=== PATIENT | male | born 1940 | race Caucasian/White ===

== ENCOUNTER 2016-11-20 17:04 | Inpatient (IN) | payer OTHER ==
[~2016-11-20] VITALS: Ht 172.7 cm; Wt 99.6 kg
[~2016-11-20 17:04] MED LIST: AMOXICILLIN500 MG PO; CLARITIN10 MG PO; FLEXERIL10 MG PO; INDOCIN50 MG PO; PERCOCET 325 MG1 TA7 PO; VICODIN 5/500 505 MG PO
[2016-11-20 17:22] VITALS: BP 137/77
[2016-11-20 17:54] LABS: BASO # 0.1 10*3/uL (0.0-0.1); BASO % 1.1 % (0.0-1.0); EOS # 0.1 10*3/uL (0.0-0.4); EOS % 1.1 % (1.0-4.0); HEMOGLOBIN 14.6 g/dl (14.0-18.0); LYMPH # 2.7 10*3/uL (1.3-4.4); LYMPH % 41.8 % (27.0-41.0); MEAN CELL VOLUME 93.7 fl (80.0-94.0); MEAN CORPUSCULAR HGB 31.8 pg (27.0-31.0); MEAN PLATELET VOLUME 12.2 fl (9.6-12.3); MONO # 0.5 10*3/uL (0.1-1.0); MONO % 7.1 % (3.0-9.0); NEUT # 3.1 10*3/uL (2.3-7.9); NEUT % 48.6 % (47.0-73.0); PLATELET COUNT AUTOMATED 200 10*3/uL (130-400); RED BLOOD COUNT 4.59 10*6/uL (4.50-5.90); RED CELL DISTRI WIDTH 13.7 % (0-14.5); WHITE BLOOD COUNT 6.4 10*3/uL (4.8-10.8)
[2016-11-20 18:00] VITALS: BP 134/84
[2016-11-20 18:06] LABS: PROTHROMBIN TIME 10.5 SECONDS (9.0-12.4)
[2016-11-20 18:11] LABS: ALBUMIN 3.5 gm/dl (3.1-4.5); ALKALINE PHOSPHATASE 75 U/L (45-117); BILIRUBIN, TOTAL 0.4 mg/dl (0.2-1.0); BUN 22 mg/dl (7-24); CARBON DIOXIDE 30 mmol/L (21-32); CHLORIDE 106 mmol/L (98-107); EST GLOM FILT AFRICAN AMERICAN 52 ml/min; GLUCOSE 160 mg/dL (65-99); MAGNESIUM 2.1 mg/dL (1.5-2.1); POTASSIUM 4.1 mmol/L (3.5-5.1); SGOT/AST 29 IU/L (3-35); SGPT/ALT 51 U/L (12-78); SODIUM 143 mmol/L (136-145); TOTAL PROTEIN 6.9 gm/dL (6.4-8.2)
[2016-11-20 18:12] LABS: TROPONIN I < 0.015 ng/ml (<0.045)
[2016-11-20 21:30] VITALS: BP 118/51
[2016-11-21] VITALS: BP 138/62
[2016-11-21] MEDS ORDERED: OXYCODONE AND A1 TA4 PO (00:31)
[2016-11-21] MEDS ORDERED: COLCHICINE0.6 M1 PO (00:39)
[2016-11-21] MEDS ORDERED: ALLOPURINOL100 MG PO (00:40)
[2016-11-21] MEDS ORDERED: VITAMIN D1000 IU PO (00:40)
[2016-11-21 06:42] LABS: BASO # 0.1 10*3/uL (0.0-0.1); BASO % 1.2 % (0.0-1.0); EOS # 0.2 10*3/uL (0.0-0.4); EOS % 2.7 % (1.0-4.0); HEMATOCRIT 40.6 % (42.0-52.0); HEMOGLOBIN 13.6 g/dl (14.0-18.0); LYMPH % 51.2 % (27.0-41.0); MEAN CELL VOLUME 95.3 fl (80.0-94.0); MEAN CORPUSCULAR HGB 31.9 pg (27.0-31.0); MEAN CORPUSCULAR HGB CONC 33.5 g/dl (33.0-37.0); MONO # 0.5 10*3/uL (0.1-1.0); MONO % 7.8 % (3.0-9.0); NEUT # 2.2 10*3/uL (2.3-7.9); NEUT % 36.9 % (47.0-73.0); PLATELET COUNT AUTOMATED 166 10*3/uL (130-400); RED BLOOD COUNT 4.26 10*6/uL (4.50-5.90); RED CELL DISTRI WIDTH 13.9 % (0-14.5); WHITE BLOOD COUNT 5.9 10*3/uL (4.8-10.8)
[2016-11-21 07:16] LABS: ALBUMIN 2.9 gm/dl (3.1-4.5); BUN 21 mg/dl (7-24); CARBON DIOXIDE 26 mmol/L (21-32); CHLORIDE 110 mmol/L (98-107); CHOLESTEROL 150 mg/dL (<200); EST GLOM FILT AFRICAN AMERICAN > 60 ml/min; GLUCOSE 119 mg/dL (65-99); PHOSPHOROUS 3.5 mg/dL (2.5-4.9); SGOT/AST 23 IU/L (3-35); SGPT/ALT 41 U/L (12-78); SODIUM 143 mmol/L (136-145); TRIGLYCERIDES 146 mg/dl (<150); VLDL CHOLESTEROL 29 mg/dL (6-40)
[2016-11-21 07:21] LABS: PROTHROMBIN TIME 10.7 SECONDS (9.0-12.4)
[2016-11-21 07:22] LABS: HEMOGLOBIN A1c 6.9 % (4.8-5.6)
[2016-11-21 07:24] LABS: ALKALINE PHOSPHATASE 65 U/L (45-117); BILIRUBIN, TOTAL 0.3 mg/dl (0.2-1.0); FREE T4 0.87 ng/dl (0.76-1.46); HDL CHOLESTEROL 37 mg/dl (40-60); LDL CHOLESTEROL 84 mg/dL (9-159); TOTAL PROTEIN 5.9 gm/dL (6.4-8.2)
[2016-11-21 07:36] LABS: FOLIC ACID 9.07 ng/mL (>5.38); VITAMIN D, 25-HYDROXY 34.4 ng/mL (30-100)
[2016-11-21 08:00] VITALS: BP 144/68
[2016-11-21 10:07] LABS: BILIRUBIN NEGATIVE (NEGATIVE); BLOOD NEGATIVE (NEGATIVE); CLARITY CLEAR (CLEAR); COLOR YELLOW (YELLOW); GLUCOSE NEGATIVE (NEGATIVE); KETONE NEGATIVE (NEGATIVE); LEUKO ESTERASE NEGATIVE (NEGATIVE); NITRITE NEGATIVE (NEGATIVE); PROTEIN NEGATIVE (NEGATIVE); SPECIFIC GRAVITY 1.025 (1.005-1.030)
[2016-11-21 12:00] VITALS: BP 154/66
[2016-11-21 12:01] LABS: MUCOUS 1+; RBC 0-2 rbc/hpf (0-2); URINE REFLEX COMMENT NO (NO)
[2016-11-21 16:00] VITALS: BP 153/98
== END 2016-11-21 16:29 | disposition home or self-care (01) | DRG 205 ==
LOC: ED 17:04 → EDHOLD 18:36 → 4E 18:36
PROVIDERS: Hospitalist; Student in an Organized Health Care Education/Training Program
DX: M94.0 Chondrocostal junction syndrome [Tietze] (principal); N17.0 Acute kidney failure with tubular necrosis; E44.0 Moderate protein-calorie malnutrition; E11.9 Type 2 diabetes mellitus without complications; R07.81 Pleurodynia; M1A.9XX0 Chronic gout, unspecified, without tophus (tophi); E66.9 Obesity, unspecified; Z68.33 Body mass index [BMI] 33.0-33.9, adult; Z82.49 Family history of ischemic heart disease and other diseases of the circulatory system; Z83.3 Family history of diabetes mellitus; Z88.6 Allergy status to analgesic agent; Z79.1 Long term (current) use of non-steroidal anti-inflammatories (NSAID); Z79.899 Other long term (current) drug therapy

== ENCOUNTER 2019-02-18 15:38 | Inpatient (IN) | payer OTHER ==
[~2019-02-18] VITALS: Ht 172.7 cm; Wt 101.3 kg
[~2019-02-18 15:38] MED LIST changes: +ALLOPURINOL100 MG PO; +COLCHICINE0.6 M1 PO; +OXYCODONE AND A1 TA4 PO; +VITAMIN D1000 IU PO
[2019-02-18 15:47] VITALS: BP 163/91
[2019-02-18 16:05] LABS: BASO # 0.1 10*3/uL (0.0-0.1); BASO % 0.8 % (0.0-1.0); EOS # 0.2 10*3/uL (0.0-0.4); EOS % 1.8 % (1.0-4.0); HEMATOCRIT 45.2 % (42.0-52.0); HEMOGLOBIN 14.9 g/dl (14.0-18.0); LYMPH # 3.2 10*3/uL (1.3-4.4); LYMPH % 38.7 % (27.0-41.0); MEAN CELL VOLUME 95.8 fl (80.0-94.0); MEAN CORPUSCULAR HGB 31.6 pg (27.0-31.0); MEAN PLATELET VOLUME 11.9 fl (9.6-12.3); MONO # 0.6 10*3/uL (0.1-1.0); NEUT # 4.3 10*3/uL (2.3-7.9); NEUT % 51.5 % (47.0-73.0); PLATELET COUNT AUTOMATED 220 10*3/uL (130-400); RED BLOOD COUNT 4.72 10*6/uL (4.50-5.90); RED CELL DISTRI WIDTH 14.3 % (0-14.5); WHITE BLOOD COUNT 8.3 10*3/uL (4.8-10.8)
[2019-02-18 16:16] LABS: ACT PARTIAL THROMBO TIME 26.2 SECONDS (20.0-32.1)
[2019-02-18 16:24] LABS: ALBUMIN 3.6 gm/dl (3.1-4.5); ALKALINE PHOSPHATASE 92 U/L (45-117); BUN 20 mg/dl (7-24); CHLORIDE 107 mmol/L (98-107); CREATININE 1.24 mg/dL (0.70-1.30); POTASSIUM 4.2 mmol/L (3.5-5.1); SGOT/AST 21 IU/L (3-35); SGPT/ALT 40 U/L (12-78); SODIUM 139 mmol/L (136-145); TOTAL PROTEIN 7.8 gm/dL (6.4-8.2)
[2019-02-18 16:26] LABS: TROPONIN I < 0.015 ng/ml (<0.045)
--- NOTE | 2019-02-18 17:32 | NUR ---
PT REFUSED NITROGLYCERIN.
[2019-02-18 18:16] VITALS: BP 125/75
--- NOTE | 2019-02-18 18:58 | NUR ---
A 78, admitted to , under the services of PHIL Méndez DO with a diagnosis of DYSPNEA/CHEST PAIN. Chief complaint is INTERMITTENT EPISODES OF CHEST PAIN WITH SHORTNESS OF BREATH, ABOUT 3-4 EPISODES/DAY FOR PAST 1-2 WEEKS, DIZZINESS WITH AMBULATION. Patient arrived via stretcher from ER. Monitor applied. Initial assessment completed. Vital signs taken and recorded. PHIL MÉNDEZ DO notified of admission to the unit. Orders received. See assessment for past medical history, medications and allergies. Patient and/or family oriented to unit. [facility]. Clothing/patient valuable form completed. JANAY CABELLO
[2019-02-18] MEDS ORDERED: ALLOPURINOL300 MG PO (19:00)
[2019-02-18] MEDS ORDERED: OMEPRAZOLE20 M2 PO (19:01)
[2019-02-18] MEDS ORDERED: FISH OIL-OMEGA1 EACH PO (19:01)
[2019-02-18] MEDS ORDERED: GABAPENTIN400 MG PO (19:02)
[2019-02-18] MEDS ORDERED: DULCOLAX STOOL100 M1 PO (19:02)
[2019-02-18] MEDS ORDERED: ASPIRIN CHEWABL81 MG PO (19:03)
[2019-02-18] MEDS ORDERED: GLUCOTROL5 MG PO (19:03)
[2019-02-18] MEDS ORDERED: LIPITOR20 MG PO (19:03)
--- NOTE | 2019-02-18 19:04 | NUR ---
MED REC UPDATED/CORRECTED USING INFORMATION PROVIDED BY THE PATIENT'S DAUGHTER.
[2019-02-18 20:00] VITALS: BP 145/81
--- NOTE | 2019-02-18 21:17 | NUR ---
UNALBLE TO REACH ANSWERING SERVICE FOR CONSULT AT THIS TIME
[2019-02-19] VITALS: BP 148/75
--- NOTE | 2019-02-19 02:23 | NUR ---
ANSWERING SERVICE NOTIFIED OF CONSULT
--- NOTE | 2019-02-19 03:33 | NUR ---
PT RESTING ON BACK, RESP EASY AND REGULAR ON ROOM AIR, NO C/O NOTED. BED IN LOWEST, LOCKED POS, CALL LIGHT IN REACH.
[2019-02-19 07:14] LABS: BASO # 0.1 10*3/uL (0.0-0.1); BASO % 0.8 % (0.0-1.0); EOS # 0.2 10*3/uL (0.0-0.4); EOS % 2.3 % (1.0-4.0); HEMATOCRIT 44.3 % (42.0-52.0); HEMOGLOBIN 14.5 g/dl (14.0-18.0); LYMPH % 34.1 % (27.0-41.0); MEAN CELL VOLUME 96.3 fl (80.0-94.0); MEAN CORPUSCULAR HGB 31.5 pg (27.0-31.0); MEAN CORPUSCULAR HGB CONC 32.7 g/dl (33.0-37.0); MEAN PLATELET VOLUME 12.7 fl (9.6-12.3); MONO # 0.7 10*3/uL (0.1-1.0); MONO % 7.5 % (3.0-9.0); NEUT # 4.8 10*3/uL (2.3-7.9); NEUT % 55.1 % (47.0-73.0); PLATELET COUNT AUTOMATED 216 10*3/uL (130-400); RED CELL DISTRI WIDTH 14.5 % (0-14.5); WHITE BLOOD COUNT 8.7 10*3/uL (4.8-10.8)
[2019-02-19 07:26] LABS: BUN 19 mg/dl (7-24); CHLORIDE 106 mmol/L (98-107); CHOLESTEROL 106 mg/dL (<200); CREATININE 1.29 mg/dL (0.70-1.30); HDL CHOLESTEROL 43 mg/dl (40-60); LDL CHOLESTEROL 32 mg/dL (9-159); PHOSPHOROUS 3.2 mg/dL (2.5-4.9); SODIUM 141 mmol/L (136-145); TRIGLYCERIDES 155 mg/dl (<150); VLDL CHOLESTEROL 31 mg/dL (6-40)
[2019-02-19 08:36] LABS: VITAMIN D, 25-HYDROXY 50.6 ng/mL (30-100)
--- NOTE | 2019-02-19 09:00 | NUR ---
Victorian Literature Professor in to talk to patient. Patient states lives at HOME with daughter. There are few steps in the home. Physician: agustin [facility] Home health services: none Patient's level of ADLs: INDEPENDENT Patient has working utilities: all working DME: scooter, cane, walker Follow-up physician's appointment after d/c: will be made by hospitalist nurse director upon discharge Does patient want to access PORTAL?: no Discharge plan discussed with patient, he lives at home with his daughter, he states he is independent in ambulation with his scooter, cane or walker, he is independent in adls. he states he will return home when medically stable, discussed with him VNA and he declines any home services at this time, case management will follow. JOAQUIN MAI
--- NOTE | 2019-02-19 10:15 | NUR ---
Occupational Therapy evaluation completed on 5 with full eval to follow. Precautions include occasional ww use,needs LE adapt equipment for MS LB self care, low complexity level 39325. Patient is able to perform self care at MS level with LE adaptive equipment including manager solar, sock aid, long shoe horn. at home. Recommend no further OT as patient is able to perform self care with adapt equipment and functional mobility w/ww for return home w/ daughter. Thank you. Nicole Rhodes OTR/l
--- NOTE | 2019-02-19 10:15 | NUR ---
PHYSICAL THERAPY Physical therapy evaluation completed, 5E. full details to follow. low complexity determined after evaluation/chart review, [address]. PT to work on gait, endurance, strength, balance and safety. No therapy needs at discharge. Thank you Joi Alejo, PT, DPT
[2019-02-19 12:00] VITALS: BP 132/69
--- NOTE | 2019-02-19 14:10 | NUR ---
PHYSICAL THERAPY Patient seen this pm 1:1 for therapy visit and was resting supine in bed upon therapist arrival. Patient identified by name / and was very pleasant this afternoon, voicing no c/o's pain. Patient transfers supine to sit, then sit to stand SBA, ambulating 50'x 1, CGA, use of wh walker, demonstrating decreased stride and initial first steps with unsteady gait pattern. Patient able to improve to smoother stride following v/c and returned to EOB sit with mild fatigue. Patient HR remained WFL's throughout entire therapy session as patient remained EOB sit with call light, tray table, and telephone. Will continue per POC as tolerated, total treatment time 14 minutes. Sam Bojorquez, BEHAVIOR SUPPORT SPECIALIST
[2019-02-19 16:00] VITALS: BP 131/67
[2019-02-19 20:00] VITALS: BP 137/68
[2019-02-20] VITALS: BP 127/71
--- NOTE | 2019-02-20 02:38 | NUR ---
PATIENT RESTING ON RT SIDE, RESPIRATIONS EASY AND REGULAR ON ROOM AIR, NO S.S DISTRESS. BED IN LOWEST, LOCKED POS, CALL LIGHT WITHIN REACH, SIDE RAILS UP X2.
--- NOTE | 2019-02-20 09:00 | NUR ---
PT EDUCATED ON STRESS TEST POCEDURE AND REMAINING NPO. PT AWAKE, ALERT AND ORIENTED. NO STATED COMPLAINTS. SITTING UP IN CHAIR AT THIS TIME, RESPIRATIONS ARE EASY AND REGULAR. CHAIR IN LOCKED POSITION AND CALL LIGHT WITHIN REACH.
--- NOTE | 2019-02-20 09:00 | NUR ---
case management visits with patient, he states he is having a stress test today and will be returning home after that, discussed with him VNA and he declines any services at this time
[2019-02-20 12:00] VITALS: BP 127/62
--- NOTE | 2019-02-20 13:07 | NUR ---
INFORMED SIGNED CONSENT OBTAINED FOR LEXISCAN STRESS TEST WITH DR STERLING. RESTING EKG NSR HR 72 BP 140/72. PULSE OX 97% LUNGS CLEAR. PT COMPLETED ONE MINUTE OF A LEXISCAN PROTOCOL WITH PT RECEIVING LEXISCAN 0.4MG IV OVER 10 SECONDS[address] PACS NOTED NO ST CHANGES SEEN. PT C/O A WEIRD FEELING AND HOT FLASH. LAST RECOVERY HR OF 60 BP 130/68. PT IN STABLE CONDITION, AWAITING NUCLEAR IMAGES.
--- NOTE | 2019-02-20 13:21 | NUR ---
PHYSICAL THERAPY Patient was out of his room for a stress test this pm and unavailable for therapy at this time. Will continue per POC as able. Sam Bojorquez, MANAGER WOMEN
--- NOTE | 2019-02-20 14:42 | NUR ---
PHYSICAL THERAPY CO-SIGN I approve of the Physical Therapy notes written above. AMINA CLEMENTE, PT, DPT
--- NOTE | 2019-02-20 15:25 | NUR ---
DION was notified via message that the patients home is now in forclosure and the patient is at risk of being homeless. DION spoke with the patient who stated that this has been an ongoing issue for a few months. Patient stated that his daughter assist him with paying the bills because he is unable to read or write. Patient stated that he has already contacted the [employer] and [facility] numerous times. He stated the Sales Enablement Analyst from the [place] has been helping him figure things out. Patient stated that his son has also helped catch the payment up. The patient stated that he thinks the issues is with the insurance part of the mortgage payment. INSTRUMENT TECHNICIAN attempted to reach out to the [facility] Sales [employer]ment Analyst a message was left for a return call. Patient is being discharged will follow up with the patient once DION hears back from the [place] Sales Enablement Analyst. -DION Price
--- NOTE | 2019-02-20 15:33 | NUR ---
Discharge instructions reviewed with patient/family. Patient receptive and verbalizes understanding. Follow-up care arranged. Written instructions given to patient/family. JEANNETTE HA
--- NOTE | 2019-02-23 09:34 | NUR ---
DION received call back from Lea CLAYTON at [place]. Silas stated that he just got involved with the patients case. He stated that the patient recently paid someone to put on a new roof, and the person ran off with the funds. Silas stated the patients recently passed and handled all the bills. The patient is unable to read or write therefore the daughter has been handling the funds. Silas stated that he does not feel the daughter is taking the funds but is not handling them properly. Silas stated most of the bills are not beng paid. DION contacted [employer]PS inregards to the patient being exploited for the roof and the patients home being in forclosure.
== END 2019-02-20 15:33 | disposition home or self-care (01) | DRG 391 ==
LOC: ED 15:38 → EDHOLD 18:06 → 5E 18:06
PROVIDERS: Emergency Medicine; Student in an Organized Health Care Education/Training Program; ADMIT Internal Medicine
PROC: 3E073KZ Introduction of Other Diagnostic Substance into Coronary Artery, Percutaneous Approach (ICD-10-PCS; principal; 2019-02-20)
PROC: 4A02XM4 Measurement of Cardiac Total Activity, External Approach (ICD-10-PCS; principal; 2019-02-20)
DX: K21.9 Gastro-esophageal reflux disease without esophagitis (principal); E11.00 Type 2 diabetes mellitus with hyperosmolarity without nonketotic hyperglycemic-hyperosmolar coma (NKHHC); E44.0 Moderate protein-calorie malnutrition; F41.9 Anxiety disorder, unspecified; R06.09 Other forms of dyspnea; E11.65 Type 2 diabetes mellitus with hyperglycemia; M1A.09X0 Idiopathic chronic gout, multiple sites, without tophus (tophi); E66.09 Other obesity due to excess calories; M19.91 Primary osteoarthritis, unspecified site; M48.00 Spinal stenosis, site unspecified; G89.29 Other chronic pain; M54.5 Low back pain; F33.42 Major depressive disorder, recurrent, in full remission; H91.13 Presbycusis, bilateral; L71.9 Rosacea, unspecified; E11.22 Type 2 diabetes mellitus with diabetic chronic kidney disease; I12.9 Hypertensive chronic kidney disease with stage 1 through stage 4 chronic kidney disease, or unspecified chronic kidney disease; N18.3 Chronic kidney disease, stage 3 (moderate); E78.5 Hyperlipidemia, unspecified; G47.33 Obstructive sleep apnea (adult) (pediatric); Z87.891 Personal history of nicotine dependence; Z85.820 Personal history of malignant melanoma of skin; Z88.5 Allergy status to narcotic agent; Z98.1 Arthrodesis status; Z83.3 Family history of diabetes mellitus; Z82.49 Family history of ischemic heart disease and other diseases of the circulatory system; Z87.442 Personal history of urinary calculi; Z79.82 Long term (current) use of aspirin; Z79.899 Other long term (current) drug therapy; Z68.34 Body mass index [BMI] 34.0-34.9, adult

== ENCOUNTER 2019-08-29 10:31 | Emergency (ER) | payer OTHER ==
[~2019-08-29] VITALS: Wt 102.1 kg
[~2019-08-29 10:31] MED LIST changes: +ALLOPURINOL300 MG PO; +ASPIRIN CHEWABL81 MG PO; +DULCOLAX STOOL100 M1 PO; +FISH OIL-OMEGA1 EACH PO; +GABAPENTIN400 MG PO; +GLUCOTROL5 MG PO; +LIPITOR20 MG PO; +OMEPRAZOLE20 M2 PO
[2019-08-29 11:00] LABS: BASO # 0.1 10*3/uL (0.0-0.1); BASO % 1.2 % (0.0-1.0); EOS # 0.2 10*3/uL (0.0-0.4); EOS % 2.9 % (1.0-4.0); HEMATOCRIT 44.4 % (42.0-52.0); LYMPH # 2.3 10*3/uL (1.3-4.4); LYMPH % 39.6 % (27.0-41.0); MEAN CELL VOLUME 96.9 fl (80.0-94.0); MEAN CORPUSCULAR HGB 31.9 pg (27.0-31.0); MEAN CORPUSCULAR HGB CONC 32.9 g/dl (33.0-37.0); MEAN PLATELET VOLUME 12.2 fl (9.6-12.3); MONO # 0.4 10*3/uL (0.1-1.0); NEUT # 2.9 10*3/uL (2.3-7.9); NEUT % 50.1 % (47.0-73.0); PLATELET COUNT AUTOMATED 201 10*3/uL (130-400); RED BLOOD COUNT 4.58 10*6/uL (4.50-5.90); RED CELL DISTRI WIDTH 13.9 % (0-14.5); WHITE BLOOD COUNT 5.8 10*3/uL (4.8-10.8)
[2019-08-29 11:10] LABS: ACT PARTIAL THROMBO TIME 25.8 SECONDS (20.0-32.1)
[2019-08-29 11:23] LABS: ALBUMIN 3.6 gm/dl (3.1-4.5); ALKALINE PHOSPHATASE 78 U/L (45-117); BUN 15 mg/dl (7-24); CHLORIDE 108 mmol/L (98-107); CREATININE 1.41 mg/dL (0.70-1.30); SGOT/AST 39 IU/L (3-35); SGPT/ALT 57 U/L (12-78); SODIUM 138 mmol/L (136-145); TOTAL PROTEIN 6.9 gm/dL (6.4-8.2)
[2019-08-29 11:25] LABS: TROPONIN I < 0.015 ng/ml (<0.045)
[2019-08-29 12:16] VITALS: BP 140/70
== END 2019-08-29 12:55 | disposition home or self-care (01) ==
LOC: ED 10:31
PROVIDERS: Emergency Medicine
DX: M54.6 Pain in thoracic spine (principal); M25.511 Pain in right shoulder; J44.9 Chronic obstructive pulmonary disease, unspecified; M10.9 Gout, unspecified; E11.9 Type 2 diabetes mellitus without complications; Z88.5 Allergy status to narcotic agent; Z79.82 Long term (current) use of aspirin; Z79.899 Other long term (current) drug therapy

== ENCOUNTER → 2020-06-01 | Outpatient (CLI) | payer OTHER | END | disposition home or self-care (01) | LOC: COVID19 12:31 | PROVIDERS: ATTEND Internal Medicine | DX: U07.1 COVID-19 (principal) ==

== ENCOUNTER 2022-08-11 20:19 | Emergency (ER) | payer OTHER ==
[~2022-08-11] VITALS: Ht 165.1 cm; Wt 90.7 kg
[~2022-08-11 20:19] MED LIST changes: +ALOGLIPTIN12.5 MG PO; +AMOXICILLIN500 M3 PO; +CEFTRIAXON2 GM/50 ML IV; +COLCHICINE0.6 M2 PO; +CYMBALTA60 MG PO; +ERTAPENEM1 GM IV; +GLUCOTROL10 M1 PO; -GLUCOTROL5 MG PO; +INDOMETHACIN50 MG PO; +METFORMIN HYDR500 MG PO; +METRONIDAZOLE500 M1 PO
[2022-08-11 20:28] VITALS: BP 121/62
== END 2022-08-11 23:04 | disposition home or self-care (01) ==
LOC: ED 20:19
DX: S51.812A Laceration without foreign body of left forearm, initial encounter (principal); S09.90XA Unspecified injury of head, initial encounter; Z88.5 Allergy status to narcotic agent; Z98.890 Other specified postprocedural states; Z87.891 Personal history of nicotine dependence; W19.XXXA Unspecified fall, initial encounter; Y93.89 Activity, other specified; Y92.009 Unspecified place in unspecified non-institutional (private) residence as the place of occurrence of the external cause; Y99.8 Other external cause status